=== PATIENT | female | born 1940 | race Caucasian/White ===

== ENCOUNTER → 2018-07-24 | Outpatient (CLI) | payer MEDICARE, OTHER ==
[~2018-07-24] MED LIST: AZIT500 PO; CYAN1000I IM; ERGO50000 PO; ETHA400 PO; MULVIT PO; RIFA150 PO
== END | disposition home or self-care (01) ==
LOC: LAB 12:45 → LAB SHORT 12:45
DX: A31.9 Mycobacterial infection, unspecified (principal); J47.9 Bronchiectasis, uncomplicated
CPT/HCPCS: 87015; 87116; 87206

== ENCOUNTER 2022-04-01 14:08 | Inpatient (IN) | payer MEDICARE ==
[~2022-04-01] VITALS: Ht 165.1 cm; Wt 47.8 kg
[~2022-04-01 14:08] MED LIST changes: +CVS SPECTRAVIT1 EA12 PO; -ERGO50000 PO; -MULVIT PO; +Vitamin D PO
[2022-04-01 14:54] LABS: Hematocrit 42.9 % (33.0-51.0); Mean Corpuscular HGB 30.5 pg (26.0-34.0); Mean Corpuscular HGB Conc 32.6 g/dL (31.5-36.5); Mean Corpuscular Volume 94 fL (80-100); Mean Platelet Volume 10.4 fL (9.1-12.4); Platelet Count 101 K/mm3 (150-400); RDW Coefficient Variation 13.3 % (11.7-14.2); RDW Standard Deviation 45.7 fL (35.1-46.3); Red Blood Cell Count 4.59 M/mm3 (3.80-5.20); White Blood Cell Count 13.48 K/mm3 (4.00-11.30)
[2022-04-01 15:04] LABS: Albumin, Blood 2.8 g/dL (3.4-5.0); Albumin/Globulin Ratio 0.7 (0.8-1.8); Bilirubin, Total 0.8 mg/dL (0.1-1.0); Bun/Creatinine Ratio 18.2 (12.0-20.0); Calcium, Blood 9.6 mg/dL (8.5-10.1); Creatinine, Blood 2.2 mg/dL (0.40-1.00); Globulin, Blood 4.1 g/dL (2.2-4.0); Potassium, Blood 3.6 mmol/L (3.5-5.5); Total Protein, Blood 6.9 g/dL (6.4-8.2)
[2022-04-01 16:30] LABS: BAND PERCENT MAN 39 % (0-8); BASOPHILS PERCENT MAN 0 % (0-2); EOSINOPHILS PERCENT MAN 0 % (0-6); LYMPHOCYTES % ATYPICAL MANUAL 1 % (0-0); LYMPHOCYTES PERCENT MAN 2 % (21-46); METAMYELOCYTE ABSOLUTE MAN 1.61 K/mm3 (0.00-0.00); METAMYELOCYTE PERCENT MAN 12 % (0-0); MONOCYTES ABSOLUTE MAN 0.13 K/mm3 (0.16-1.47); MONOCYTES PERCENT MAN 1 % (4-13); MYELOCYTE PERCENT MAN 3 % (0-0); NEUTROPHILS ABSOLUTE MAN 10.91 K/mm3 (1.96-9.15); SEG NEUTROPHILS PERCENT MAN 42 % (41-73); TOTAL CELLS COUNTED 100
[2022-04-01 16:32] LABS: Source, Urine Straight Cath
[2022-04-01 16:59] LABS: Appearance, Urine Cloudy (Clear); Bilirubin, Urine Neg (Neg); Blood, Urine 5+ (Neg); Color, Urine Amber (P-Yellow); Glucose Qualitative, Urine Neg (Neg); Ketones, Urine Neg (Neg); Leukocyte Esterase, Urine 2+ (Neg); Nitrite, Urine Neg (Neg); Protein, Urine 3+ (Neg); Urobilinogen, Urine NORM (Normal)
[2022-04-01 17:38] LABS: Bacteria Many /hpf
[2022-04-01 17:39] LABS: Hyaline Casts 0-2 /lpf (0-2); Mucus Light (0-Heavy)
[2022-04-01 17:40] LABS: Red Blood Cells, Urine 50-100 /hpf (0-2); White Blood Cells, Urine 25-50 /hpf (0-5)
[2022-04-01 17:41] LABS: Amorphous Light (0-Heavy); Squamous Epithelial Cells Rare /hpf (Few); Transitional Epithelial Cells Few /hpf (0-Rare)
[2022-04-01 17:42] LABS: Yeast/Fungi Urine Mod /hpf
[2022-04-01 17:43] LABS: Renal Epithelial Rare /hpf (0-Rare)
--- NOTE | 2022-04-01 21:30 | NUR ---
SHIFT ASSESSMENT ASSUMED CARE OF PT @ 1900. PT ARRIVED TO PCU SHORTLY PRIOR TO 1900. PT ALERT TO PERSON, WAKENS EASILY TO VERBAL STIMULI, FOLLOWS SIMPLE COMMANDS, ASSISTS WITH TURNS. PT ON FIRST 1L BOLUS @ TIME OF REPORT, SECOND 1 L BOLUS COMPLETE @ 2100. PT RECEIVING NS @ 150/HR NOW. BP SLOWLY IMPROVING, REMAINS MILDLY HYPOTENSIVE, POSSIBLY PTS NORMAL BP CONSIDERING SIZE AND AGE. PT HAS NOT HAD TO URINATE. TEMP AFEBRILE. LACTIC ACID IMPROVING. REMAINS ON BIPAP c O2 SATS >90%. NSR ON MONITOR.
[2022-04-02 04:41] LABS: Hematocrit 35.3 % (33.0-51.0); Hemoglobin 12.1 g/dL (11.5-16.0); Mean Corpuscular HGB 31.3 pg (26.0-34.0); Mean Corpuscular HGB Conc 34.3 g/dL (31.5-36.5); Mean Corpuscular Volume 92 fL (80-100); Mean Platelet Volume 10.8 fL (9.1-12.4); Platelet Count 84 K/mm3 (150-400); RDW Coefficient Variation 13.5 % (11.7-14.2); Red Blood Cell Count 3.86 M/mm3 (3.80-5.20); White Blood Cell Count 27.19 K/mm3 (4.00-11.30)
[2022-04-02 04:48] LABS: Bun/Creatinine Ratio 23.9 (12.0-20.0); Calcium, Blood 7.9 mg/dL (8.5-10.1); Creatinine, Blood 1.63 mg/dL (0.40-1.00); Potassium, Blood 3.6 mmol/L (3.5-5.5)
--- NOTE | 2022-04-02 06:47 | NUR ---
SHIFT SUMMARY PT SLOWLY IMPROVING T/O THE NIGHT. PT ABLE TO COMMUNICATE MORE APPROPRIATELY, STATES SHE FEELS MUCH BETTER BUT STILL SLOW TO RESPOND. BIPAP OFF, PT NOW ON 2-4LPM O2 VIA NC c SATS >90%. LS CLEAR. BP IMPROVING, NORMOTENSIVE AT THIS TIME. URINE OUTPUT INCREASING, PT ABLE TO USE BEDPAN APPROPRIATELY. REPORT GIVEN TO ONCOMING NURSE.
--- NOTE | 2022-04-02 17:46 | NUR ---
SHIFT SUMMARY PT HAS BEEN RESTING IN BED THROUGHOUT THE DAY, SLEEPING FOR A MAJORITY OF THE DAY. PT WAS ABLE TO CORRECTLY ANSWER ALL ORIENTATION QUESTIONS AND STATED THAT THEY DID NOT REMEBER HOW THEY ARRIVED AT THE HOSPITAL OR WHY THEY WERE HERE. THEY HAVE BEEN PLEASANT AND COOPERATIVE WITH CARES. BLOOD PRESSURE HAS REMAINED STABLE AND WITHIN NORMAL RANGE (114-139 SBP). SPO2 READ 89-92% ON ROON AIR, HOWEVER RESPIRATORY RATE CLIMBED TO 29. PT WAS PLACED ON 1L OF OXYGEN BY NASAL CANNULA AND SPO2 INCREASED TO 91-95 WITH A RESPIRATORY RATE OF 20-25. PT HAS REMAINED AFEBRILE. A PIVOT TRANSFER TO BEDSIDE COMMODE WITH TWO STAFF WAS SUCCESSFULLY PERFORMED. THE PT WAS MILDLY UNSTEADY AND GENERALLY WEAK, THEY MADE STATEMENTS ACKNOWLEDING THESE OBSERVATIONS.
[2022-04-03 03:53] LABS: BASOPHILS ABSOLUTE AUTO 0.14 K/mm3 (0.00-0.23); BASOPHILS PERCENT AUTO 1 % (0-2); Hematocrit 38.4 % (33.0-51.0); Hemoglobin 12.9 g/dL (11.5-16.0); LYMPHOCYTES PERCENT AUTO 3 % (21-46); MONOCYTES ABSOLUTE AUTO 0.49 K/mm3 (0.16-1.47); MONOCYTES PERCENT AUTO 3 % (4-13); Mean Corpuscular HGB 30.3 pg (26.0-34.0); Mean Corpuscular HGB Conc 33.6 g/dL (31.5-36.5); Mean Corpuscular Volume 90 fL (80-100); Mean Platelet Volume 10.7 fL (9.1-12.4); Platelet Count 87 K/mm3 (150-400); RDW Coefficient Variation 13.9 % (11.7-14.2); Red Blood Cell Count 4.26 M/mm3 (3.80-5.20); White Blood Cell Count 19.38 K/mm3 (4.00-11.30)
[2022-04-03 04:06] LABS: Albumin, Blood 1.9 g/dL (3.4-5.0); Albumin/Globulin Ratio 0.5 (0.8-1.8); Bilirubin, Total 0.3 mg/dL (0.1-1.0); Bun/Creatinine Ratio 33.3 (12.0-20.0); Calcium, Blood 8.7 mg/dL (8.5-10.1); Creatinine, Blood 1.14 mg/dL (0.40-1.00); EOSINOPHILS ABSOLUTE AUTO 0.18 K/mm3 (0.00-0.68); EOSINOPHILS PERCENT AUTO 1 % (0-6); Globulin, Blood 3.5 g/dL (2.2-4.0); IMMATURE GRAN ABSOLUTE AUTO 0.16 K/mm3 (0.00-0.10); IMMATURE GRAN PERCENT AUTO 1 % (0-1); NEUTROPHILS ABSOLUTE AUTO 17.91 K/mm3 (1.96-9.15); NEUTROPHILS PERCENT AUTO 93 % (41-73); Potassium, Blood 3.3 mmol/L (3.5-5.5); Total Protein, Blood 5.4 g/dL (6.4-8.2)
--- NOTE | 2022-04-03 05:43 | NUR ---
PHOTOGRAPHIC SPECIALIST SUMMARY PT IS ALERT AND COMMUNICATING APPROPRIATELY W STAFF THIS SHIFT. PT HAD NO VERNIGHT EVENTS SHE SLEPT COMFORTABLY FOR THE MAJORITY OF THE NIGHT. PT MAINTAINED O2 SATS >90% ON 1L NC THIS SHIFT. BP WNL AND STABLE. TELE SHOWING SR 70'S-80'S THIS SHIFT. PT VOIDING WELL ON BSC. PT AFEBRILE. WILL REPORT TO ONCOMING RN.
--- NOTE | 2022-04-03 14:31 | NUR ---
Pt. is awake in bed and welcomes my visit. Pt. is delightfully pleasant, and rapport is established. Pt. is a little unsettled because she doesn't feel ready to be discharged home. Listen theraputically, and share personal stories of [place] and belief. Pt. was once a [employer], and has verbalized gfratitude for the good care she has received here at [facility]. Prayed with Pt. Pt. verbalized gratitude for the spiritual care visit.
[2022-04-04 04:40] LABS: BASOPHILS ABSOLUTE AUTO 0.07 K/mm3 (0.00-0.23); BASOPHILS PERCENT AUTO 1 % (0-2); EOSINOPHILS PERCENT AUTO 1 % (0-6); Hematocrit 40.6 % (33.0-51.0); Hemoglobin 13.9 g/dL (11.5-16.0); IMMATURE GRAN PERCENT AUTO 1 % (0-1); LYMPHOCYTES ABSOLUTE AUTO 0.47 K/mm3 (0.84-5.20); LYMPHOCYTES PERCENT AUTO 4 % (21-46); MONOCYTES ABSOLUTE AUTO 0.92 K/mm3 (0.16-1.47); MONOCYTES PERCENT AUTO 8 % (4-13); Mean Corpuscular HGB 30.3 pg (26.0-34.0); Mean Corpuscular HGB Conc 34.2 g/dL (31.5-36.5); Mean Corpuscular Volume 89 fL (80-100); NEUTROPHILS ABSOLUTE AUTO 9.32 K/mm3 (1.96-9.15); NEUTROPHILS PERCENT AUTO 85 % (41-73); Platelet Count 76 K/mm3 (150-400); RDW Coefficient Variation 13.7 % (11.7-14.2); RDW Standard Deviation 44.3 fL (35.1-46.3); Red Blood Cell Count 4.59 M/mm3 (3.80-5.20); White Blood Cell Count 10.98 K/mm3 (4.00-11.30)
[2022-04-04 04:56] LABS: Bun/Creatinine Ratio 40.1 (12.0-20.0); Calcium, Blood 8.7 mg/dL (8.5-10.1); Creatinine, Blood 0.77 mg/dL (0.40-1.00); Potassium, Blood 3.3 mmol/L (3.5-5.5)
--- NOTE | 2022-04-04 06:19 | NUR ---
CONTENT DESIGNER SUMMARY ADMITTED FOR SEPTIC SHOCK. SHE IS A FULL CODE. PLAN FOR IV ABX THERAPY THEN DISCHARGE. PT IS ALERT AND ORIENTED X4, USES CALL LIGHT APPROPRIATELY. SBA TO BSC. SHE ADMITS TO HAVING SOME SLIGHT STOMACH PAIN BUT DID NOT WANT MEDICATION FOR IT. SHE HAS BEEN SLEEPING THROUGHOUT THE NIGHT. NO ACUTE EVENTS THIS SHIFT.
--- NOTE | 2022-04-04 18:36 | NUR ---
SHIFT SUMMARY PLEASANT 81-YEAR-OLD FEMALE, A&O X4, FULL CODE. ACTIVITY: BEDSIDE ASSIST. CONTINENT, UP TO BATHROOM WITH ASSIST. PERIPHERAL IV L FOREARM AND L UPPER ARM, BOTH PATENT, THOUGH THE DISTAL SITE IS SORE FOR FLUSH. PTN TAKES MEDS WHOLE WITH WATER. TO VISIT TODAY. CONTINUE TO MONITOR.
[2022-04-05 05:15] LABS: BASOPHILS ABSOLUTE AUTO 0.02 K/mm3 (0.00-0.23); BASOPHILS PERCENT AUTO 0 % (0-2); EOSINOPHILS ABSOLUTE AUTO 0.19 K/mm3 (0.00-0.68); EOSINOPHILS PERCENT AUTO 2 % (0-6); Hematocrit 37.3 % (33.0-51.0); Hemoglobin 12.9 g/dL (11.5-16.0); IMMATURE GRAN ABSOLUTE AUTO 0.07 K/mm3 (0.00-0.10); IMMATURE GRAN PERCENT AUTO 1 % (0-1); LYMPHOCYTES ABSOLUTE AUTO 0.73 K/mm3 (0.84-5.20); LYMPHOCYTES PERCENT AUTO 9 % (21-46); MONOCYTES ABSOLUTE AUTO 1.21 K/mm3 (0.16-1.47); MONOCYTES PERCENT AUTO 15 % (4-13); Mean Corpuscular HGB 30.3 pg (26.0-34.0); Mean Corpuscular HGB Conc 34.6 g/dL (31.5-36.5); Mean Corpuscular Volume 88 fL (80-100); Mean Platelet Volume 11.9 fL (9.1-12.4); NEUTROPHILS ABSOLUTE AUTO 6.09 K/mm3 (1.96-9.15); NEUTROPHILS PERCENT AUTO 73 % (41-73); Platelet Count 51 K/mm3 (150-400); RDW Coefficient Variation 13.7 % (11.7-14.2); RDW Standard Deviation 44.2 fL (35.1-46.3); Red Blood Cell Count 4.26 M/mm3 (3.80-5.20); White Blood Cell Count 8.31 K/mm3 (4.00-11.30)
[2022-04-05 05:38] LABS: Bun/Creatinine Ratio 27.2 (12.0-20.0); Calcium, Blood 8.9 mg/dL (8.5-10.1); Creatinine, Blood 1.14 mg/dL (0.40-1.00); Potassium, Blood 3.6 mmol/L (3.5-5.5)
--- NOTE | 2022-04-05 05:57 | NUR ---
IN TUBE CONVERSION TECHNICIAN SUMMARY ADMITTED FOR SEPTIC SHOCK. PT IS FULL CODE. PLAN FOR IV ABX THERAPY THEN DC HOME. PT IS ALERT AND ORIENTED X4. SBA TO BSC. SHE DENIES ANY PAIN. HAS BEEN SLEEPING THROUGHOUT THE NIGHT. NO ACUTE EVENTS.
--- NOTE | 2022-04-05 17:47 | NUR ---
SHIFT SUMMARY PTN A&O X4, FULL CODE. ACTIVITY: UP WITH ASSIST. CONTINENT AND WITH ASSIST USES WALKER TO TOILET, STANDS TO WASH HANDS, AND CHANGES PULL-UPS ON OWN WHILE STANDING. L PERIPHERAL IV IN AC, AND A SECOND PERIPHERAL IV ON L FOREARM. PTN TAKES MEDS WHOLE WITH WATER. PTN DID COMPLAIN OF SOME STOMACH DISCOMFORT TODAY AND TYLENOL DID RELIEF HER SYMPTOMS TO A PAIN LEVEL OF 3/10. PTN ON CONTINUOUS NORMAL SALINE. PT AND OT ORDERED TODAY, FRONT-WHEEL WALKER WILL BE DELIVERED LATER TODAY OR TOMORROW FOR HOME. PLAN TO D/C WITH HELP OF HOME HEALTH. CONTINUE TO MONITOR.
--- NOTE | 2022-04-06 04:13 | NUR ---
SHIFT SUMMARY; PATIENT WAS MEDICATED X 1 WITH TYLENOL FOR PAIN. SHE IS CURRENTLY RECEIVING NS AT 150ML/HR. SHE IS SLIGHTLY FEBRILE THIS AM AT 100.8 PATIENT IS NOT SYMPTOMATIC. DENIES HEADACHE OR CHILLS. SHE IS CURRENTLY RESTING COMFORTABLY EYES CLOSED BREATHING EVEN AND UNLABORED NADN. WILL CONTINUE TO MONITOR THIS PATIENT CLOSELY UNTIL HAND OFF AT SHIFT CHANGE TO DAY SHIFT RN.
[2022-04-06 10:09] LABS: Bun/Creatinine Ratio 19.3 (12.0-20.0); Calcium, Blood 8.8 mg/dL (8.5-10.1); Creatinine, Blood 1.14 mg/dL (0.40-1.00); Potassium, Blood 3.1 mmol/L (3.5-5.5)
--- NOTE | 2022-04-06 18:07 | NUR ---
SHIFT SUMMARY PT ALERT AND ORIENTED, FOLLOWS COMMANDS. TOLERATING DIET, CONTINUED IV ABX. US OF ABD/BLADDER COMPLETED, SHOWING STONE PRESENT, DISCHARGE CANCELED. PT UP OOB DURING SHIFT TO BATHROOM AND WITH PT. POSSIBLE D/C TOMORROW. CALL LIGHT WITHIN REACH.
[2022-04-07 05:57] LABS: Bun/Creatinine Ratio 20.8 (12.0-20.0); Calcium, Blood 8.6 mg/dL (8.5-10.1); Creatinine, Blood 1.06 mg/dL (0.40-1.00); Potassium, Blood 3.5 mmol/L (3.5-5.5)
--- NOTE | 2022-04-07 06:47 | NUR ---
SHIFT SUMMARY; PATIENT HAD UNEVENTFUL NIGHT. SHE SLEPT SOUNDLY UNTIL 4 AM AND THEN WAS UP THE REST OF SHIFT. SHE IS CURRENTLY RECEIVING IV FLUIDS NS/100ML/HR. PATIENT IS AO X 4. HER VITAL SIGNS ARE WNL. SHE HAS PLEASANT AFFECT AND IS COOPERATIVE WITH CARE. PLAN IS FOR POSSIBLE DC TODAY.
[2022-04-07 09:43] LABS: BASOPHILS ABSOLUTE AUTO 0.03 K/mm3 (0.00-0.23); BASOPHILS PERCENT AUTO 0 % (0-2); EOSINOPHILS PERCENT AUTO 2 % (0-6); Hematocrit 40.3 % (33.0-51.0); Hemoglobin 13.7 g/dL (11.5-16.0); IMMATURE GRAN ABSOLUTE AUTO 0.08 K/mm3 (0.00-0.10); IMMATURE GRAN PERCENT AUTO 1 % (0-1); LYMPHOCYTES ABSOLUTE AUTO 0.79 K/mm3 (0.84-5.20); LYMPHOCYTES PERCENT AUTO 7 % (21-46); MONOCYTES ABSOLUTE AUTO 0.64 K/mm3 (0.16-1.47); MONOCYTES PERCENT AUTO 6 % (4-13); Mean Corpuscular HGB 30.4 pg (26.0-34.0); Mean Corpuscular Volume 90 fL (80-100); Mean Platelet Volume 10.8 fL (9.1-12.4); NEUTROPHILS ABSOLUTE AUTO 9.74 K/mm3 (1.96-9.15); NEUTROPHILS PERCENT AUTO 85 % (41-73); Platelet Count 129 K/mm3 (150-400); RDW Coefficient Variation 13.8 % (11.7-14.2); RDW Standard Deviation 45.1 fL (35.1-46.3); White Blood Cell Count 11.48 K/mm3 (4.00-11.30)
[2022-04-07] MEDS ORDERED: LACT PO (11:55)
[2022-04-07] MEDS ORDERED: TAMS.4ER PO (11:55)
[2022-04-07] MEDS ORDERED: CEFP200 PO (11:55)
== END 2022-04-07 12:26 | disposition home health service (06) | DRG 871 ==
LOC: ER 14:08 → ICUW 17:44 → PCU 17:44 → MEDS 04-03 15:03 → ENPENDDIS 04-06 18:06 → MEDS 04-07 12:26
PROVIDERS: Family Medicine; Student in an Organized Health Care Education/Training Program; ADMIT Internal Medicine
PROC: 3E03329 Introduction of Other Anti-infective into Peripheral Vein, Percutaneous Approach (ICD-10-PCS; principal; 2022-04-01)
PROC: 5A09357 Assistance with Respiratory Ventilation, Less than 24 Consecutive Hours, Continuous Positive Airway Pressure (ICD-10-PCS; 2022-04-02)
DX: A41.59 Other Gram-negative sepsis (principal); G93.41 Metabolic encephalopathy; J96.01 Acute respiratory failure with hypoxia; R65.21 Severe sepsis with septic shock; J18.9 Pneumonia, unspecified organism; N17.9 Acute kidney failure, unspecified; N13.6 Pyonephrosis; J47.9 Bronchiectasis, uncomplicated; K59.00 Constipation, unspecified; E87.6 Hypokalemia; D69.6 Thrombocytopenia, unspecified; N13.9 Obstructive and reflux uropathy, unspecified; Z86.19 Personal history of other infectious and parasitic diseases; Z88.5 Allergy status to narcotic agent; Z79.899 Other long term (current) drug therapy; Z98.890 Other specified postprocedural states
CPT/HCPCS: 36415; 71045; 71260; 76770; 80048; 80053; 81001; 83605; 83735; 85025; 85027; 87040; 87077; 87086; 87186; 93005; 93010; 94660; 94667; 94760; 94762; 96361; 96374; 96376; 97110; 97116; 97162; 97165; 97530; 97535; 99285-25; A9270; J0456; J0696; J1644; J3480; J7030; J7040; J7050; Q9967

== ENCOUNTER 2024-12-22 16:32 | Emergency (ER) | payer MEDICARE, OTHER ==
[~2024-12-22] VITALS: Ht 175.3 cm; Wt 45.4 kg
[~2024-12-22 16:32] MED LIST changes: +AMOCLA875 PO; +CEFP200 PO; +ELIQUIS5 M2 PO; +LACT PO; +TAMS.4ER PO
[2024-12-22 20:21] VITALS: BP 155/88
== END 2024-12-22 20:22 | disposition home or self-care (01) ==
LOC: ER 16:32
DX: M25.522 Pain in left elbow (principal); W18.30XA Fall on same level, unspecified, initial encounter; Z88.5 Allergy status to narcotic agent; Z79.2 Long term (current) use of antibiotics
CPT/HCPCS: 70450; 73080; 99284-25